=== PATIENT | female | born 1990 | race Caucasian/White ===

== ENCOUNTER 2020-07-12 06:45 | Inpatient (IN) | payer BC, SELFPAY ==
[2020-07-12] VITALS (150 sets, daily range): BP systolic 92–148; BP diastolic 49–116; PULSE 51–168; TEMP 36.2–37.8; O2SAT 81–100; BMI 45.4
--- NOTE | 2020-07-12 07:10 | LDADM ---
This patient, Carlos Montalvo, was admitted to Labor/Delivery/Recovery 107 on 07/12/20 at 06:45. Plans for labor, pain management and were discussed with patient. Patient/family oriented to hospital policies and general routines including ID bracelet, bed and alarms, visiting hours, pain management, procedures, bathroom and other care routines, personal items, smoking policy, room service/diet and guest tray routines, infant security routines,call light, and visiting hours. Patient/Family are encouraged to report perceived risks to care and to ask questions if they do not understand what they are told or what they should do. See OBIX for further documentation.
--- NOTE | 2020-07-12 07:35 | WPDOBADMIT ---
Obstetrics - Admit Note Admission Note: record reviewed. No pertinent additions to the history and/or any subsequent changes in the physical findings that are not consistent with the expected course of the were found. Additions to the history and/or subsequent changes in the physical findings follow. at 39+2 for induction of labor. GBS negative. Cervix /-2 AROM with clear fluid. Continue pitocin induction.
[2020-07-12 07:36] LABS: Basophils Percent Auto 0.3 % (0.2-1.2); Eosinophils Absolute Auto 0.1 K/mm3 (0-0.3); Eosinophils Percent Auto 1.2 % (0-4.4); Hematocrit 37.3 % (37.0-47.0); Hemoglobin 12.2 g/dL (12.0-15.0); Immature Granulocyte Absolute 0.04 K/mm3 (0.00-0.031); Immature Granulocyte Percent A 0.4 % (0-0.5); Lymphocytes Absolute Auto 2.06 K/mm3 (0.9-3.2); Lymphocytes Percent Auto 21.4 % (18.3-44.2); Mean Corpuscular HGB Conc 32.7 g/dl (32-36); Mean Corpuscular Hemoglobin 29.6 pg (26-34); Mean Corpuscular Volume 90.5 fl (80-100); Mean Platelet Volume 11.4 fl (7.4-10.4); Monocytes Absolute Auto 0.6 K/mm3 (0.1-0.6); Monocytes Percent Auto 6.1 % (2.6-8.5); Neutrophils Absolute Auto 6.8 K/mm3 (1.3-6.7); Neutrophils Percent Auto 70.6 % (45.5-73.1); Platelet Count Result 257 k/mm3 (150-375); Red Blood Count 4.12 M/mm3 (4.2-5.4); Red Cell Distribution Width 15.1 % (11.5-14.5); White Blood Count 9.6 K/mm3 (4.5-10.0)
[2020-07-12] MEDS: OXYTOCIN 30 UNITS/NS 500 ML 30 UNITS/500 ML BAG IV CONT (08:30)
[2020-07-12] MEDS: LACTATED RINGERS 1,000 ML 125 ML IV CONT ×3 (08:30→18:35)
[2020-07-12 09:51] LABS: Rapid Plasma Reagin Non-Reactive (NonReactive)
--- NOTE | 2020-07-12 13:28 | P.PNAN_ITS ---
Anes - Eval Pre Procedure Procedure: Labor epidural Date/Time: 07/12/20 13:28 Surgeon: Alexis Preop Diagnosis: Abd pain with contractions Pre Op Diagnosis: iol Patient Data Age: 30 Gender: F Height: 5 ft 7 in Weight: 131.6 kg Last Vital Signs Pulse 80 07/12/20 12:30 BP 108/72 07/12/20 12:30 Allergies Allergy/AdvReac Type Severity Reaction Status Date / Time WATERPROOF TAPE Allergy Rash Uncoded 07/04/20 10:10 Home Medications Medication Instructions Recorded Confirmed Type docosahexaenoic acid 200 mg capsule mg PO 06/14/20 History Laboratory Tests 07/12/20 07/12/20 07/12/20 07:24 07:24 07:24 WBC 9.6 K/mm3 K/mm3 (4.5-10.0) RBC 4.12 M/mm3 L M/mm3 (4.2-5.4) Hgb 12.2 g/dL g/dL (12.0-15.0) Hct 37.3 % % (37.0-47.0) MCV 90.5 fl fl (80-100) MCH 29.6 pg pg (26-34) MCHC 32.7 g/dl g/dl (32-36) RDW 15.1 % H % (11.5-14.5) Plt Count 257 k/mm3 k/mm3 (150-375) MPV 11.4 fl H fl (7.4-10.4) Immature Gran % (Auto) 0.4 % % (0-0.5) Neut % (Auto) 70.6 % % (45.5-73.1) Lymph % (Auto) 21.4 % % (18.3-44.2) [place] % (Auto) 6.1 % % (2.6-8.5) Eos % (Auto) 1.2 % % (0-4.4) Baso % (Auto) 0.3 % % (0.2-1.2) Lymph # (Auto) 2.06 K/mm3 K/mm3 (0.9-3.2) [place] # (Auto) 0.6 K/mm3 K/mm3 (0.1-0.6) Eos # (Auto) 0.1 K/mm3 K/mm3 (0-0.3) Baso # (Auto) 0.0 K/mm3 K/mm3 (0.0-0.1) Abs Immat Gran (auto) 0.04 K/mm3 H K/mm3 (0.00-0.031) Absolute Neuts (auto) 6.8 K/mm3 H K/mm3 (1.3-6.7) Absolute Nucleated RBC 0.0 K/mm3 K/mm3 (0.0-0.012) Nucleated RBC % 0.0 % % (0.0-0.2) RPR Non-reactive (NonReactive) Blood Type O Positive Antibody Screen Negative Patient hx anesthesia problems: none Family hx anesthesia problems: none PMFSH Past Medical History Medical History (Updated 07/12/20 @ 13:30 by Jose Luis Quezada CRNA) Anxiety and depression Morbid obesity Vaginal delivery 02/28/10, , full term, 40w4d, female, 9# Family History Family History Mother Carcinoma of colon Sibling Thyroid cancer Social History Social History Smoking status: Never smoker Smoking end date: 11/02/19 Alcohol intake: never Substance use: former Substance use type: marijuana Spiritual care concerns: No Exam Day of Procedure 07/12/20 13:28 Patient weight: morbidly obese Neurological: alert and oriented
[2020-07-12] MEDS: ONDANSETRON INJ 4 MG/2 ML VIAL IV PUSH (16:55)
--- NOTE | 2020-07-12 21:27 | PM.OBPRVD ---
OB - Delivery Note Procedure Delivery date: 07/12/20 Procedure: events: Labor Induction Intrapartal events: None Induction method: AROM and per pitocin protocol Delivery monitor: external FHT, external uterine and internal uterine Route of delivery: Laceration description: Perineal - 2nd Degree Delivery repair: vicryl (2-0) Specimen: No Estimated blood loss (mL): 79 Anesthesia type: Epidural Disposition: floor Baby Date of : 07/12/20 Time of : 21:08 Weeks of gestation at delivery: 39 gender: Male Weight (pounds): 8 Weight (ounces): 5 presentation: vertex position: Right Occiput Anterior Placenta delivery description: Spontaneous cord vessel description: 3 Vessels, Nuchal Cord (X2) and Clamped/Cut score one minute: 8 score five minutes: 9
[2020-07-12] MEDS: OXYTOCIN 30 UNITS/NS 500 ML 30 UNITS/500 ML BAG 125 UNITS IV CONT (21:47)
[2020-07-12] MEDS: WITCH HAZEL 40 PADS 1 PAD TOPICAL (23:16)
[2020-07-12] MEDS: BENZOCAINE 20% AER SPR (*SP) 56 GM CAN 1 SPRAY TOPICAL (23:16)
[2020-07-12] MEDS: IBUPROFEN 600 MG TABLET PO (23:16)
[2020-07-13] VITALS: BP 106/66; PULSE 72; RESP 16; TEMP 36.8
[2020-07-13 00:17] LABS: Amphetamine Screen Urine Negative (Negative); Barbiturate Screen Urine Negative (Negative); Benzodiazepines Screen Urine Negative (Negative); Cannabinoid Screen Urine Positive (Negative); Cocaine Screen Urine Negative (Negative); Methadone Screen Urine Negative (Negative); Opiate Screen Urine Negative (Negative); Phencyclidine Screen Urine Negative (Negative)
[2020-07-13] MEDS: ACETAMINOPHEN 325 MG TABLET 650 MG PO ×2 (04:36→20:56)
[2020-07-13 05:00] LABS: Hematocrit 31.8 % (37.0-47.0); Hemoglobin 10.7 g/dL (12.0-15.0)
--- NOTE | 2020-07-13 07:30 | PC.NURSE ---
PT introductions made and plan of care discussed per post , pain management, breast feeding, daily care activities. PT verbalized understanding of such care.
[2020-07-13 08:30] VITALS: BP 115/67; PULSE 66; RESP 18; TEMP 35.8; O2SAT 99
[2020-07-13 10:00] VITALS: PULSE 66; RESP 18; O2SAT 99
[2020-07-13] MEDS: DOCUSATE SODIUM 100 MG CAPSULE PO ×2 (10:03→16:47)
[2020-07-13] MEDS: MULTIVIT/MIN/PREN/FOL AC/IRON TABLET 1 TAB PO (10:03)
[2020-07-13] MEDS: IBUPROFEN 600 MG TABLET PO ×2 (10:04→16:46)
[2020-07-13] MEDS: LANOLIN (LANSINOH) 7.5 GM CREAM 1 APPLIC TOPICAL (10:04)
--- NOTE | 2020-07-13 12:45 | WPDANLDPN2 ---
Anes-Prog Note L&D Date/Time: 07/13/20 12:45 Comfortable throughout: labor and delivery Neuraxial method: epidural Epidural/Spinal procedure site: clean & non-tender Neuro status: Neuro function grossly intact. Cardiovascular status: normal Respiratory status: normal Airway patency: baseline Mental status: baseline Post-Op hydration status: normal Vital Signs: Last Vital Signs Temp 35.8 C L 07/13/20 08:30 Pulse 66 07/13/20 08:30 Resp 18 07/13/20 08:30 BP 115/67 07/13/20 08:30 Pulse Ox 99 07/13/20 08:30 Pain score (VAS): 0 I/O: Intake & Output 07/12/20 07/13/20 07/13/20 23:59 07:59 15:59 Intake Total 3200 Output Total 159 Balance 3041 Post-procedural complaints: none Patient feedback: Patient satisfied with anesthetic care.
--- NOTE | 2020-07-13 13:50 | PC.NURSE ---
Consulted with patient, mother reports infant has been sleepy. has not fed since 0900, reporting she has attempted a few times. Advised mother to call out for assist if is not feeding by 3.5 hours from last feeding. Reviewed feeding cues, frequencies, duration of feedings, feeding elimination flow sheet, and signs of adequate intake. Demonstrated stimulation techniques to wake infant for feeding. Assisted with to breast. Reviewed positioning/alignment in cross cradle, holding breast in U hold and guided asymmetrical latch on. was sleepy and several attempts made before he was able to latch correctly. nursed eagerly, with steady draws and frequent swallowing noted. Reviewed signs of a correct latch, effective nursing and suck swallow ratio. Infant was able to maintain latch without discomfort to mother. Nipple care reviewed. Suggested mother stimulate infant while feeding to keep infant awake and nursing effectively and to assist with maintaining deep latch. Demonstrated how to adjust latch more deeply while feeding. Instructed mother to call out for RN assistance if she is unable to latch infant for feeding or she has discomfort with nursing. Instructed feeding should be initiated three hours from start of last feeding or if feeding cues are noted before. Mother voiced understanding of information shared.
[2020-07-13 18:40] VITALS: BP 105/73; PULSE 87; RESP 16; TEMP 36.8
[2020-07-14] MEDS: IBUPROFEN 600 MG TABLET PO ×2 (05:10→11:50)
[2020-07-14 09:20] VITALS: BP 106/72; PULSE 89; RESP 18; TEMP 36.8; O2SAT 98
[2020-07-14] MEDS: MULTIVIT/MIN/PREN/FOL AC/IRON TABLET 1 TAB PO (09:55)
[2020-07-14] MEDS: DOCUSATE SODIUM 100 MG CAPSULE PO (09:56)
--- NOTE | 2020-07-14 11:14 | PM.OBPNVD ---
OB - PN: Subj Subjective Date/time seen: 07/14/20 11:14 Patient comments: no complaints OB - PN: Obj Data Labs CBC & Chem 7: 07/13/20 04:33 OB - PN A/P Plan day: 2 Plan: routine care and discharge home Comments: Follow up [address] Espinoza. Time Spent With Patient Time: Total time spent is greater than 50% in coordination of care (as documented) at patient's floor/unit and/or counseling patient: Review of Systems Review of Systems: All systems reviewed & are unremarkable except as noted in HPI and below Exam Const: General: comfortable Chest: Breast/axilla inspection: normal inspection of the breasts Resp: Effort & Inspection: normal respiratory effort Cardio: Rate: regular rate Psych: Appearance: grossly normal Affect: normal affect Attitude: cooperative Judgement: Good judgement present (Psych)
--- NOTE | 2020-07-14 13:38 | PC.NURSE ---
1277 pt discharged home in apparent stable condition; this a.m. nurse encouraged mother to access the going home DVD either here or at home. She voiced understanding; Reviewed Mother-baby guide info with her.
[2020-07-16 10:11] VITALS: BP 121/74; PULSE 61; RESP 20; TEMP 37; O2SAT 99
--- NOTE | 2020-07-31 14:05 | PM.OBDSVD ---
DS: Admitting Diagnosis Admitting Diagnosis Admitting Diagnosis: iol DS: Discharge Diagnosis Discharge Diagnosis (1) : Code(s): Z34.90 - Encounter for supervision of normal , unspecified, unspecified trimester Status: Acute OB - DS: Summary OB Procedures : None OB Procedures Intrapartum: Spontaneous Vag Delivery OB Procedures: : None Peripartum Data Infant Delivery Method: Natural Vaginal complications: none Status at Discharge Functional status at discharge: independent ambulation Overall status at discharge: patient is progressing back to baseline Time Spent with Patient Time attestation: Total time spent providing and/or coordinating discharge services: Time spent: Less than 30 minutes Discharge Plan Discharge Attending physician on discharge: Yady Espinoza Consulting providers: Aye Moulton Discharging Clinician: Aye Moulton Patient Disposition: Home, Self-Care Activity: pelvic rest Diet: as tolerated Discharge Instructions: Education: Mom and Baby Guide Given to: Mother Follow-Up: Call your delivering provider's office for an appointment to be seen in: 4 Weeks Mom and baby should come to the [facility] for the follow-up appointment. Appointment Date/Time: July 16, 2020 at 10:00 am What to expect at your follow-up visit: Blood Pressure Check Physical Assessment Call [phone] if you are unable to keep your appointment time. BREAST CARE: * Wear a snug supportive bra. * For engorgement discomfort: Breast Feeding: * Apply warm moist washcloths * Express milk as needed to relieve engorgement * Wear loose clothing * For sore nipples: * Identify correct latch-on * Apply warm moist washcloths before and after nursing * Air dry nipples after nursing * May apply Lansin[place] cream to nipples EPISIOTOMY/PERINEAL CARE: * Until bleeding stops, use your avtar bottle after urinating * Change your pad frequently throughout the day * You may take sitz baths several times a day (fill your bathtub with warm water and soak for 20 minutes.) Do NOT bathe in the water * No tub baths until seen by your physician - You may shower ACTIVITY: * Rest as much as possible. * Do not exercise or lift anything heavier than your baby (such as laundry or other children.) * Avoid stairs or driving as much as possible. * Do not put anything into the vagina. No douching, tampons, or sexual activity until seen by physician. NOTIFY PHYSICIAN IF YOU HAVE ANY QUESTIONS OR IF ANY OF THE FOLLOWING SYMPTOMS OCCUR: * If your episiotomy or incision becomes red, swollen, or more painful than what you have experienced in the hospital. * If your vaginal bleeding becomes foul smelling. * If your vaginal bleeding becomes more heavy than a period or if your bleeding changes from pink to bright red. However, you may pass an occasional walnut-sized clot once or twice for the first week . * If you experience a sharp, shooting pain in you calves. * If you discover a hard, reddened area on your breast or if you experience flu-like symptoms. *Temperature of 100.4 or higher DIET: * Eat regular, well-balanced meals. * Drink plenty of fluids daily. If , drink to thirst. Stand Alone Forms: General Discharge Information Follow-up/Referrals: Yady Espinoza MD [Physician] - Discharge Medications: Continued DHA 200 mg capsule PO RF: 0 Date of admission: 07/12/20 06:45 Primary Care Provider: PHYSICIAN,CORN GRINDER Admitting Provider: Yady Espinoza Discharge Date/Time: 07/14/20 13:25 Attending physician on admission: Yady Espinoza
== END 2020-07-14 13:25 | disposition home or self-care (01) | DRG 807 ==
LOC: ANHLDR 06:48 → ANHOB2 23:57
PROVIDERS: Admitting Provider Obstetrics & Gynecology; Visit Provider Obstetrics & Gynecology
DX: O69.81X0 Labor and delivery complicated by cord around neck, without compression, not applicable or unspecified (principal); Z37.0 Single live birth; O99.214 Obesity complicating childbirth; E66.01 Morbid (severe) obesity due to excess calories; O70.1 Second degree perineal laceration during delivery; Z3A.39 39 weeks gestation of pregnancy; Z23 Encounter for immunization
CPT/HCPCS: 36415; 80307; 85014; 85018; 85025; 86592; 86850; 86900; 86901; 90471; 90686; A9270; G0008; J2405; J2590; J2795; J7120